=== PATIENT | male | born 1955 | race Caucasian/White ===

== ENCOUNTER 2022-01-02 07:08 | Day surgery (SDC) | payer OTHER, MEDICARE ==
[~2022-01-02] VITALS: Ht 170.2 cm; Wt 69.5 kg
[~2022-01-02 07:08] MED LIST: FOLI-130 PO; RINGERS SOLUTION,LACTATED 1,000 ML IV ONE
[2022-01-02] MEDS ORDERED: ROCURONIUM BROMIDE 10 MG/ML 5 ML VIAL IVP ONE (07:09)
[2022-01-02] MEDS ORDERED: PROPOFOL 1% 20 ML VIAL IVP ONE (07:09)
[2022-01-02] MEDS ORDERED: MIDAZOLAM HCL 2 MG/2 ML VIAL IVP ONE (07:09)
[2022-01-02] MEDS ORDERED: ONDANSETRON HCL 4 MG/2 ML VIAL IVP ONE (07:09)
[2022-01-02] MEDS ORDERED: FentaNYL CITRATE PF 100 MCG/2 ML VIAL IVP ONE (07:09)
[2022-01-02] MEDS ORDERED: LIDOCAINE/PF 2% 5 ML VIAL IM ONE (07:09)
[2022-01-02 07:34] LABS: COVID AG,FIA SOURCE NASOPHARYNGEAL
[2022-01-02 08:12] LABS: BASOPHILS % (AUTO) 0.6 % (0.0-2.0); EOSINOPHILS % (AUTO) 2.5 % (1.0-6.0); HEMATOCRIT 42.4 % (41-53); HEMOGLOBIN 13.9 g/dL (13.5-17.5); LYMPHOCYTES # (AUTO) 1.1 K/uL (1.0-4.8); LYMPHOCYTES % (AUTO) 13.4 % (22.0-44.0); MEAN CORPUSCULAR HEMOGLOBIN 27.5 pg (26.0-34.0); MEAN CORPUSCULAR HGB CONC 32.8 G/dL (31.0-37.0); MEAN CORPUSCULAR VOLUME 84 fL (80-100); MONOCYTES # (AUTO) 0.7 K/uL (0.1-1.0); MONOCYTES % (AUTO) 7.8 % (2.0-9.0); NEUTROPHILS # (AUTO) 6.3 K/uL (1.8-7.7); NEUTROPHILS % (AUTO) 75.7 % (40.0-70.0); PLATELET COUNT (AUTO) 271 K/uL (150-450); RED BLOOD CELL COUNT(AUTO) 5.06 MIL/uL (4.50-5.90); RED CELL DISTRIBUTION WIDTH 13.5 % (11.5-14.5)
[2022-01-02] MEDS ORDERED: RINGERS SOLUTION,LACTATED 1,000 ML IV ONE (08:16)
[2022-01-02 08:28] LABS: PROTHROMBIN TIME 10.9 SEC (9.4-11.6)
[2022-01-02 08:29] LABS: ANION GAP 9 mmol/L (8-16); CALCIUM, TOTAL 9.9 mg/dL (8.8-10.5); CARBON DIOXIDE 26 mmol/L (22-29); CHLORIDE 106 mmol/L (98-107); CREATININE 1.12 mg/dL (0.60-1.30); GLOMERULAR FILTR. RATE CALC > 60 mL/min (>60); GLUCOSE,RANDOM 105 mg/dL (70-110); POTASSIUM 4.1 mmol/L (3.5-5.1); SODIUM SERUM 141 mmol/L (136-145); UREA NITROGEN, BLOOD 17 mg/dL (7-18)
[2022-01-02 08:38] LABS: ALANINE AMINOTRANSFERASE 27 U/L (12-78); ALBUMIN 3.8 g/dL (3.4-5.0); ALKALINE PHOSPHATASE 96 U/L (46-116); ASPARTATE AMINOTRANSFERASE 15 U/L (15-37); BILIRUBIN,TOTAL 0.6 mg/dL (0.1-1.0); TOTAL PROTEIN, SERUM 7.4 g/dL (6.4-8.2)
[2022-01-02] MEDS ORDERED: RISP0.5T39 PO (12:22)
[2022-01-02] MEDS ORDERED: RISP2TAB45 PO (12:22)
[2022-01-02] MEDS ORDERED: CALC-789 PO (12:22)
[2022-01-02] MEDS ORDERED: TRIH2TAB3 PO (12:22)
[2022-01-02] MEDS ORDERED: ATEN-73 PO (12:22)
[2022-01-02] MEDS ORDERED: CLON1TAB12 PO (12:22)
[2022-01-02] MEDS ORDERED: RISP0.2515 PO (12:22)
[2022-01-02] MEDS ORDERED: MULT-34 PO (12:22)
[2022-01-02] MEDS ORDERED: CHOL25TA4 PO (12:22)
[2022-01-02] MEDS ORDERED: BUSP10TA23 PO (12:22)
[2022-01-02] MEDS ORDERED: CHLO100T23 PO (12:22)
[2022-01-02] MEDS ORDERED: LITH300C3 PO (12:22)
[2022-01-02] MEDS ORDERED: SUGAMMADEX SODIUM 200 MG/2 ML VIAL IVP ONE (13:25)
== END 2022-01-02 14:50 | disposition home or self-care (01) ==
LOC: SURGERY 07:08
PROVIDERS: ATTEND Dentist General Practice
DX: K05.30 Chronic periodontitis, unspecified (principal); K02.9 Dental caries, unspecified; K03.6 Deposits [accretions] on teeth; F31.9 Bipolar disorder, unspecified; F41.9 Anxiety disorder, unspecified; M85.88 Other specified disorders of bone density and structure, other site; K59.00 Constipation, unspecified; E29.9 Testicular dysfunction, unspecified; Z79.01 Long term (current) use of anticoagulants; Z79.899 Other long term (current) drug therapy; Z98.890 Other specified postprocedural states
CPT/HCPCS: 36415; 41899; 71045; 80053; 85025; 85610; 85730; 87426; 93005; C9803; J2250; J2405; J2704; J3010; J3490 ×2; J7120; Q9967; Z7610

== ENCOUNTER 2024-01-07 05:54 | Day surgery (SDC) | payer OTHER, MEDICARE ==
[~2024-01-07] VITALS: Ht 162.6 cm; Wt 70.5 kg
[~2024-01-07 05:54] MED LIST changes: +ATEN-73 PO; +BUSP10TA23 PO; +CALC-789 PO; +CHLO100T36 PO; +CHOL25TA4 PO; +CLON1TAB12 PO; +LITH300C3 PO; +MULT-34 PO; -RINGERS SOLUTION,LACTATED 1,000 ML IV ONE; +RISP0.2515 PO; +RISP0.5T39 PO; +RISP2TAB45 PO; +TRIH2TAB3 PO
[2024-01-07] MEDS ORDERED: RINGERS SOLUTION,LACTATED 1,000 ML IV ONE ×2 (06:49→12:26)
[2024-01-07 07:21] LABS: BASOPHILS % (AUTO) 0.8 % (0.0-2.0); EOSINOPHILS % (AUTO) 3.3 % (1.0-6.0); HEMOGLOBIN 13.6 g/dL (13.5-17.5); LYMPHOCYTES # (AUTO) 1.4 K/uL (1.0-4.8); LYMPHOCYTES % (AUTO) 19.4 % (22.0-44.0); MEAN CORPUSCULAR HEMOGLOBIN 28.4 pg (26.0-34.0); MEAN CORPUSCULAR HGB CONC 33.3 G/dL (31.0-37.0); MEAN CORPUSCULAR VOLUME 85 fL (80-100); MONOCYTES # (AUTO) 0.6 K/uL (0.1-1.0); MONOCYTES % (AUTO) 8.6 % (2.0-9.0); NEUTROPHILS % (AUTO) 67.9 % (40.0-70.0); PLATELET COUNT (AUTO) 260 K/uL (150-450); RED CELL DISTRIBUTION WIDTH 13.5 % (11.5-14.5); WHITE BLOOD COUNT (AUTO) 7.3 K/uL (4.5-11.0)
[2024-01-07 07:23] LABS: CALCIUM, TOTAL 10.1 mg/dL (8.8-10.5); CREATININE 1.22 mg/dL (0.60-1.30); POTASSIUM 4.1 mmol/L (3.5-5.1)
[2024-01-07 07:27] LABS: PROTHROMBIN TIME 10.6 SEC (9.4-11.6)
[2024-01-07 07:29] LABS: ALBUMIN 3.4 g/dL (3.4-5.0); BILIRUBIN,TOTAL 0.6 mg/dL (0.1-1.0); TOTAL PROTEIN, SERUM 7.4 g/dL (6.4-8.2)
[2024-01-07] MEDS: RINGERS SOLUTION,LACTATED 1,000 ML IV ONE (10:36)
[2024-01-07] MEDS ORDERED: ONDANSETRON HCL 4 MG/2 ML VIAL IVP ONE (12:00)
[2024-01-07] MEDS ORDERED: LIDOCAINE/PF 2% 5 ML SYRINGE IVP ONE (12:00)
[2024-01-07] MEDS ORDERED: PROPOFOL 1% 20 ML VIAL IVP ONE (12:00)
[2024-01-07] MEDS ORDERED: ROCURONIUM BROMIDE 10 MG/ML 5 ML VIAL IVP ONE (12:00)
[2024-01-07] MEDS ORDERED: SUGAMMADEX SODIUM 200 MG/2 ML VIAL IVP ONE (12:00)
[2024-01-07] MEDS ORDERED: DEXAMETHASONE SOD PHOS 4 MG/ML VIAL IVP ONE (12:00)
[2024-01-07] MEDS: BUPIVACAINE 0.25%/EPI 1:200,000/PF 30 ML VIAL ONE (13:29)
== END 2024-01-07 13:45 | disposition home or self-care (01) ==
LOC: SURGERY 05:54
PROVIDERS: ATTEND Dentist General Practice
DX: K05.30 Chronic periodontitis, unspecified (principal); K02.9 Dental caries, unspecified; F41.9 Anxiety disorder, unspecified; F31.9 Bipolar disorder, unspecified; R45.1 Restlessness and agitation; M85.80 Other specified disorders of bone density and structure, unspecified site; N43.3 Hydrocele, unspecified; E22.1 Hyperprolactinemia; E29.1 Testicular hypofunction; I11.9 Hypertensive heart disease without heart failure; R94.31 Abnormal electrocardiogram [ECG] [EKG]; Z79.899 Other long term (current) drug therapy; Z98.818 Other dental procedure status
CPT/HCPCS: 41899; 80053; 85025; 85610; 85730; 36415; 93005; 71045; J2704; J1100; J2405; J3490 ×2; Q9967; J7120